=== PATIENT | female | born 1990 | race Hispanic/Latino ===

== ENCOUNTER 2017-02-02 15:10 | Observation (INO) | payer OTHER ==
[~2017-02-02] VITALS: Ht 165.1 cm; Wt 75.0 kg
[2017-02-02 15:37] VITALS: BP 97/67; PULSE 83; RESP 16; O2SAT 99
[2017-02-02] MEDS ORDERED: PNV1TABL74 PO (15:41)
[2017-02-02] MEDS ORDERED: ALBU8.5H2 INHALATION (15:41)
[2017-02-02 17:05] LABS: BASOPHILS % (AUTO) 0.1 % (0-3); EOSINOPHILS % (AUTO) 0.4 % (0-5); MONOCYTES % (AUTO) 6.2 % (4-12); Mean Corpuscular Hemoglobin 30.7 pg (27.0-35.0); Mean Corpuscular Volume 88.7 fL (81-100); NEUTROPHILS % (AUTO) 81.2 % (40-74); Platelet Count 201 bil/L (150-400)
[2017-02-02 17:27] LABS: Magnesium 1.8 mg/dL (1.6-2.6)
--- NOTE | 2017-02-02 17:58 | ED.REPORT ---
HPI-Abd Pain F Under 40 Date of Service Feb 02, 2017 ED Provider: Floyd Turner PA-C [place] is a 26-year-old female who presents with chief complaint of right flank pain. Patient states that a sharp pain woke her from sleep at 3 AM and has continued since then. It waxes and wanes. She cannot identify what improves it but states that moving aggravates it. The pain radiates onto her anterior abdomen. He rates the pain 8/10. The patient reports that she has had bowel movements the last 2 days but feels constipated. The patient is 10 weeks , but denies abdominal cramping or vaginal bleeding/discharge. Denies fever, chills, sweats, vomiting, diarrhea, chest pain, palpitations, shortness of breath, cough, wheeze, urinary symptoms. Nursing Notes Stated Complaint: RIGHT SIDE ABD PAIN/RIGHT LEG PAIN Chief Complaint: Female Abdominal Pain Nursing Notes Reviewed: Yes Allergies: Coded Allergies: No Known Allergies (Unverified , 02/02/17) Scheduled Albuterol HFA (Proair HFA) 8.5 Gm Hfa.aer.ad 2 PUFFS INHALATION Q4H Pnv with Ca,No.72/Iron/FA (Preplus Ca-Fe 27 mg-FA 1 mg Tb) 1 Each Tablet 1 TAB PO DAILY General Time Seen by MD: 17:36 Chief Complaint Abdominal pain Past Medical History Past Medical History Notes: 10 weeks 02/02/2017 Past Medical History Denies Review of Systems General: Denies fever, chills, malaise. HEENT: Denies congestion, headache, sore throat. Respiratory: Denies dyspnea, cough, shortness of breath, wheezing. Cardiovascular: Denies chest pain, palpitations. Gastrointestinal: Admits abdominal pain. Denies vomiting, diarrhea. Genitourinary: Denies frequency, urgency, dysuria, hematuria. Otherwise as noted in HPI. Physical Exam General: Well appearing, well developed, well nourished, no acute distress. Head: Atraumatic, normocephalic. Eyes: No scleral icterus or injection. No discharge. Vision grossly intact. ENT: Voice clear, hearing grossly intact. Respiratory: Regular rate and rhythm. Breath sounds present, clear to auscultation and equal bilaterally. No respiratory distress. No increased work of breathing, speaks in complete sentences. Cardiovascular: Regular rate and rhythm, without murmur, gallop or rub. No pedal edema. DP pulses 2+. Gastrointestinal: Abdomen flat and globally tender without guarding or rebound. Most pronounced in the right upper quadrant. Bowel sounds normoactive. Back: Normal to inspection. Right CVA tenderness to percussion. Skin: Warm and dry. Neurological: Grossly nonfocal. Psychological: Alert and oriented. Speech appropriate, linear and logical. Behavior appropriate. Initial Vital Signs Vital Signs (First) Date Time Temp Pulse Resp B/P Pulse Ox O2 Delivery O2 Flow Rate FiO2 02/02/17 15:37 36.4 83 16 97/67 99 Room Air Initial VS: Reviewed, Vital signs normal Interpretation & Diagnostics Interpretation & Diagnostics: PROCEDURE: MRI PELVIS WITHOUT CONTRAST ([id number]) INDICATIONS: RLQ pain in Bowel: No pathologic free fluid. Visualized small and large bowel loops are normal in caliber. No asymmetric soft tissue edema in the right lower quadrant to suggest acute appendicitis. The appendix is mildly distended, measuring 9 mm short axis without surrounding edema. A trace amount of free fluid within the pelvis is present. Genitourinary system: Kidneys are normal in size. Bladder wall thickness is normal. Fetus: A single fetus is noted in transverse presentation. Soft tissues: No ventral or inguinal hernias. Bones: Marrow has normal overall signal. IMPRESSION: 1. The appendix is prominent in size, measuring 9 mm diameter, but demonstrates no evidence of surrounding inflammation. This could represent normal variation. However, mild/early appendicitis could produce a similar appearance. Close clinical follow up, with repeat imaging if clinically warranted is recommended. 2. Trace amount of free fluid within the pelvis. Lab Results Interpretation Result Diagram: 02/02/17 1657 02/02/17 1657 Test 02/02/17 16:57 02/02/17 19:05 White Blood Count 14.6th/mm3 (3.8-10.1) Red Blood Count 4.17mil/mm3 (3.90-5.20) Hemoglobin 12.8g/dL (12.0-15.6) Hematocrit 37.0% (35.0-46.0) Mean Corpuscular Volume 88.7fL (81-100) Mean Corpuscular Hemoglobin 30.7pg (27.0-35.0) Mean Corpuscular Hemoglobin Concent 34.6% (32.0-37.0) Red Cell Distribution Width 12.6% (12.3-15.4) Platelet Count 201bil/L (150-400) Neutrophils (%) (Auto) 81.2% (40-74) Lymphocytes (%) (Auto) 11.9% (14-46) Monocytes (%) (Auto) 6.2% (4-12) Eosinophils (%) (Auto) 0.4% (0-5) Basophils (%) (Auto) 0.1% (0-3) Sodium Level 137mEq/L (134-144) Potassium Level 3.9mEq/L (3.5-5.2) Chloride Level 101mEq/L (97-108) Carbon Dioxide Level 21mmol/L (18-29) Blood Urea Nitrogen 5mg/dL (6-20) Creatinine 0.45mg/dL (0.57-1.00) Estimat Glomerular Filtration Rate 241mL/min (>59) Glucose Level 81mg/dL (60-99) Calcium Level 9.7mg/dL (8.5-10.1) Magnesium Level 1.8mg/dL (1.6-2.6) Total Bilirubin 0.5mg/dL (0.0-1.2) Aspartate Amino Transf (AST/SGOT) 14U/L (0-50) Alanine Aminotransferase (ALT/SGPT) 13U/L (0-32) Alkaline Phosphatase 63U/L (25-150) Total Protein 7.7g/dL (6.4-8.4) Albumin 3.7g/dL (3.4-5.0) Lipase 20U/L (13-60) Hold Silvestre Top Tube Received (Received) Urine Color Yellow (YELLOW) Urine Appearance Hazy (CLEAR,HAZY) Urine pH 6.0 (5.0-8.0) Urine Specific [place] 1.025 (1.003-1.035) Urine Protein Negativemg/dL (NEG,TRACE) Urine Glucose (UA) Negativemg/dL (NEGATIVE) Urine Ketones 40mg/dL (NEGATIVE) Urine Occult Blood Negative (NEGATIVE) Urine Nitrite Negative (NEGATIVE) Urine Bilirubin Negative (NEGATIVE) Urine Urobilinogen 1.0mg/dL (NORMAL) Urine Leukocyte Esterase Negative (NEGATIVE) Urine RBC 0-2/hpf (0-2) Urine WBC 0-5/hpf (0-5) Urine Epithelial Cells Few/hpf (NONE-MOD) Urine Crystals None seen (NONE SEEN) Urine Bacteria Few/hpf (NONE-FEW) Urine Hyaline Casts None/lpf (NONE) Urine Granular Casts None seen (NONE SEEN) Urine Waxy Casts None seen (NONE SEEN) Urine Red Blood Cell Casts None seen (NONE SEEN) Urine White Blood Cell Casts None seen (NONE SEEN) Urine Mucus Present (None Seen) Urine Trichomonas None seen (NONE SEEN) Urine Yeast None (NONE SEEN) Urinalysis Comment None Urine Culture Reflexed Not indicated US Focused Biliary Outpatient ultrasound performed earlier today finds no source for abdominal pain. Kidneys are noted to be normal in size without hydronephrosis or nephrolithiasis. Intrahepatic bile ducts were not dilated, extrahepatic bile duct caliber is found to be within normal limits. Appendix is not visualized but no free fluid is noted. heart rate is measured at 167 bpm. Exam Performed by: Radiologist Re-Eval/Medical Decision Med Decision/Clinical Course 26-year-old female otherwise healthy but 10 weeks presents with right flank pain that radiates to her anterior abdomen. She rates it 8 out of 10. It woke her from sleep early this morning. Seen previously at [facility] [place]. She denies abdominal cramps, vaginal bleeding or discharge. Physical examination reveals moderate tenderness in right upper quadrant as well as mild tenderness in left upper quadrant and right lower quadrant. Right CVA tenderness to percussion noted. Outpatient ultrasound performed earlier today reveals normal kidneys and bladder. Appendix is not visualized. CBC reveals leukocytosis at 14.6 with a left shift. This is improved from 17.7 drawn earlier today. Previous draw was also notable for a sedimentation rate of 45. Urinalysis performed here reveals only a few bacteria, without red or white blood cells or leukocyte esterase. Discharge & Departure Shift Change Sign-Out Patient Care Transferred: Yes Discussed Complaint(s): Yes Laboratory Evaluation: Lab evaluation discussed Imaging Studies: Imaging discussed Referrals: Rae Godoy MD (PCP) EDSupervising Provider for APC: Mir Azul MD, Seth PA-C Feb 02, 2017 17:58
[2017-02-02 19:22] LABS: APPEARANCE,URINE HAZY (CLEAR,HAZY); COLOR,URINE YELLOW (YELLOW); OCCULT BLOOD,URINE NEGATIVE (NEGATIVE)
--- NOTE | 2017-02-02 20:57 | DRSVH ---
PROCEDURE: MRI PELVIS WITHOUT CONTRAST ([id number]) INDICATIONS: RLQ pain in TECHNIQUE: Noncontrast coronal, axial, and sagittal HASTE, axial HASTE with fat saturation, axial 2-D FLASH in- and [id number], axial 2-D time of flight, axial diffusion and ADC from the kidneys to the symphysis . COMPARISON: [facility] Ultrasound, US, US ABDOMEN, 02/02/2017, 12:25. FINDINGS: Image quality: Partially degraded by motion artifact Bowel: No pathologic free fluid. Visualized small and large bowel loops are normal in caliber. No asymmetric soft tissue edema in the right lower quadrant to suggest acute appendicitis. The appendix is mildly distended, measuring 9 mm short axis without surrounding edema. A trace amount of free flu id within the pelvis is present. Genitourinary system: Kidneys are normal in size. Bladder wall thickness is normal. Fetus: A single fetus is noted in transverse presentation. Soft tissues: No ventral or inguinal hernias. Bones: Marrow has normal overall signal. IMPRESSION: 1. The appendix is prominent in size, measuring 9 mm diameter, but demonstrates no evidence of surrou nding inflammation. This could represent normal variation. However, mild/early appendicitis could pro duce a similar appearance. Close clinical follow up, with repeat imaging if clinically warranted is r ecommended. 2. Trace amount of free fluid within the pelvis. Dictated by: Dario Rogel M.D. on 02/02/2017 at 20:51 Approved by: Dario Rogel M.D. on 02/02/2017 at 20:56
[2017-02-02 21:30] VITALS: BP 104/61; PULSE 84; RESP 18; O2SAT 96
[2017-02-02] MEDS ORDERED: Ondansetron 2 mg/mL 2 mL Inj IVPUSH PRN (23:10)
[2017-02-02] MEDS ORDERED: HYDROmorphone PCA 0.2 mg/mL 30 mL Inj IV PRN (23:10)
[2017-02-02] MEDS: Lactated Ringer's 1,000 ML IV SCH (23:52)
--- NOTE | 2017-02-03 00:15 | NUR ---
Admit Arrived via w/c w/tech, report taken from Gemma ZHOU RN,admit dx abd pain poss. 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
[2017-02-03 00:25] VITALS: BP 96/60; PULSE 82; RESP 16; O2SAT 97
[2017-02-03] MEDS: Lactated Ringer's 1,000 ML IV SCH ×2 (00:33→08:28)
[2017-02-03 06:00] VITALS: BP 87/53; PULSE 80; RESP 18; O2SAT 99
[2017-02-03 06:18] LABS: BASOPHILS % (AUTO) 0.2 % (0-3); EOSINOPHILS % (AUTO) 1.9 % (0-5); MONOCYTES % (AUTO) 6.8 % (4-12); Mean Corpuscular Hemoglobin 30.3 pg (27.0-35.0); Mean Corpuscular Volume 90.2 fL (81-100); NEUTROPHILS % (AUTO) 67.5 % (40-74); Platelet Count 194 bil/L (150-400)
--- NOTE | 2017-02-03 07:33 | PCM.PNSURG ---
Subjective Visit Information: Reason for Visit Abdominal Pain 1STMESTER Surgery/Surgery Date Post-Op Day # Date of Admission: Feb 02, 2017 at 22:39 Hospital Day # Subjective: denies RLQ pain this am, no n/v overnight, hungry Objective Objective Awake in bed abd: soft, nontender on R side WBC normal this am Vital Sign- Last 8 Hours Date Time Temp Pulse Resp B/P Pulse Ox O2 Delivery O2 Flow Rate FiO2 02/03/17 06:00 36.8 80 18 87/53 99 Room Air 02/03/17 06:00 18 99 02/03/17 00:25 36.8 82 16 96/60 97 Room Air Intake and Output- Last 8 Hour 02/03/17 Cumulative From/Thru 07:00 02/02/17 15:37 - 02/03/17 06:56 Intake Total 1546 ml 1546 ml Balance 1546 ml 1546 ml Intake IV Total 1546 ml 1546 ml Result Diagram: 02/03/17 0548 02/02/17 1657 Assessment & Plan Impression R abd pain, resolved Problems: Plan Reg diet Home today Issa Sharif MD Feb 03, 2017 07:33
--- NOTE | 2017-02-03 07:35 | NUR ---
Plan to Discharge Dr. Sharif met with patient this morning, he stated he would like for patient to eat this morning and then can be discharged, as she is no longer in any pain.
--- NOTE | 2017-02-03 08:48 | PCM.DISURG ---
Surgical Discharge Instruction Date of Service Feb 03, 2017 Dates of Hospitalization Date of Hospital Admission Feb 02, 2017 at 22:39 Providers Admitting Physician: Bernabe Jacobs MD Primary Care Physician: Rae Godoy MD Attending Physician: Bernabe Jacobs MD Discharge Diagnosis Discharge Diagnosis R Abd pain Diet Discharge Diet: No restrictions Activity Discharge Activity-General: No restrictions Additional Instructions Discharge Instructions Return to ED if pain returns. OK to take home meds. Rx: none Follow Up Plan Call your provider for: Fever, Increasing abdominal pain, Vomiting Issa Sharif MD Feb 03, 2017 08:48
--- NOTE | 2017-02-03 09:18 | HP ---
[address] [address] HISTORY AND PHYSICAL PATIENT: BOBBI MEDEIROS : 1990 MR#: [id number] ADMIT: 02/02/2017 JOB ID: [id number] CHIEF COMPLAINT: Right side abdominal pain in . HISTORY OF PRESENT ILLNESS: The patient is a 26-year-old female, who is approximately 10 weeks who has been having right-sided abdominal pain since yesterday. She was worked up in the emergency department with lab tests and ultrasound and an MRI that showed a fairly normal appendix without surrounding inflammation. The patient did have an elevated white blood count of 14. The patient was observed overnight without IV antibiotics. This morning the patient is completely pain free and is hungry and wants to eat. Her white blood count has also normalized to 8.6. PAST MEDICAL HISTORY: Prior . MEDICATIONS: Include albuterol and vitamins. ALLERGIES: None. SOCIAL HISTORY: The patient is . She is predominantly Wolof speaking. REVIEW OF SYSTEMS: Positive for the abdominal pain yesterday but none today. PHYSICAL EXAMINATION: The patient is currently in the hospital bed in no acute distress. Her temperature is 36.8, blood pressure 87/53, pulse is 80, respirations 18. Head is normocephalic, atraumatic. There is no scleral icterus. Neck is supple. Heart is regular. Lungs are clear. Abdomen is nondistended. It is nontender in the right lateral abdomen, more in the right lower quadrant. The rest of the abdomen is also benign. Extremities shows no clubbing and no cyanosis. Neurologically, the patient is awake and alert and answers appropriately. LABORATORY EXAMINATION: This morning shows a white blood count of 8.6, hematocrit 36.0, platelet count is 194. ASSESSMENT: This is a 26-year-old female, who has no more abdominal pain on the right. The patient is hungry and wants to eat. I will advance her diet and discharge her today. I do not believe she has acute appendicitis.
--- NOTE | 2017-02-03 11:00 | NUR ---
Discharge Note Patient and patient's spouse given all discharge information and instructions, no questions at this time. IV discontinued intact at this time. All belongings gathered and removed from the room. Patient stated she wanted to walk and not use a wheelchair at this time, patient was escorted off the unit, she had no problems walking at this time.
--- NOTE | 2017-02-06 10:44 | PCM.DC.SUR ---
Discharge Summary Date of Service: Date of Hospital Admission: Feb 02, 2017 at 22:39 Date of Discharge: 02/03/2017 Diagnosis at Time of Discharge 1. Right lower quadrant abdominal pain 2. First trimester Problems: Brief History and Physical: The patient is a 26-year-old female, who is approximately 10 weeks who had been having right-sided abdominal pain. She was worked up in the emergency department with lab tests and ultrasound and an MRI that showed a fairly normal appendix without surrounding inflammation. Consultants: None Hospital Course: The patient was admitted for observation. The following morning right lower quadrant pain had resolved, she was hungry, and what blood cell count had normalized to 8600. She was stable for discharge on her second hospital day. Pathology: None Disposition: The patient was discharged home on her second hospital day. Follow-up Plan: She will follow-up with her primary care provider as needed. Albuterol HFA (Proair HFA) 8.5 Gm Hfa.aer.ad 2 PUFFS INHALATION Q4H PRN PRN For Shortness of Breath (Reported) Pnv with Ca,No.72/Iron/FA (Preplus Ca-Fe 27 mg-FA 1 mg Tb) 1 Each Tablet 1 TAB PO DAILY (Reported) copies to: Rae Godoy MD, Fred H PA-C Feb 06, 2017 10:44
== END 2017-02-03 11:00 | disposition home or self-care (01) ==
LOC: SED 15:10 → MOC 22:39
PROVIDERS: ADMIT Surgery; ATTEND Surgery
DX: R10.31 Right lower quadrant pain (principal); D72.829 Elevated white blood cell count, unspecified; Z33.1 Pregnant state, incidental
CPT/HCPCS: 36415; 72195; 80053; 81000; 81002; 81025; 83690; 83735; 85025; 96360; 99285; G0378; J7120